=== PATIENT | male | born 2000 | race Two or more races ===

== ENCOUNTER 2020-06-17 02:30 | Emergency (ER) | payer OTHER ==
[2020-06-17 02:55] VITALS: BP 108/64; PULSE 79; TEMP 99.2
--- OUTSIDE RECORDS SUMMARY | 2020-06-17 02:57 | XMS ---
:2000 Author Organization [facility] Care Team Providers Name Role Phone Fabian Unavailable [phone] ED STAFF PHYSICIAN Unavailable Unavailable JOSEFINA DARIEN Unavailable Unavailable ED STAFF PHYSICIAN Unavailable Unavailable Josefina MD Unavailable Unavailable Josefina MD Unavailable Unavailable Re-disclosure Warning The records that you are about to access may contain information from federally- assisted alcohol or drug abuse programs. If such information is present, then the following federally mandated warning applies: This information has been disclosed to you from records protected by federal confidentiality rules (42 CFR part 2). The federal rules prohibit you from making any further disclosure of this information unless further disclosure is expressly permitted by the written consent of the person to whom it pertains or as otherwise permitted by 42 CFR part 2. A general authorization for the release of medical or other information is NOT sufficient for this purpose. The Federal rules restrict any use of the information to criminally investigate or prosecute any alcohol or drug abuse patient.The records that you are about to access may contain highly sensitive health information, the redisclosure of which is protected by Article 27-F of the [facility] Public Health law. If you continue you may haveaccess to information: Regarding HIV / AIDS; Provided by facilities licensed or operated by the [facility] Office of Mental Health; or Provided by the [facility] Office for People With Developmental Disabilities. If such information is present, then the following [facility] mandated warning applies: This information has been disclosed to you from confidential records which are protected by state law. State law prohibits you from making any further disclosure of this information without the specific written consent of the person to whom it pertains, or as otherwise permitted by law. Any unauthorized further disclosure in violation of state law may result in a fine or retirement sentence or both. A general authorization for the release of medical or other information is NOT sufficient authorization for further disclosure. Encounters Encounter Providers Location Date Indications Data Source(s ) Emergency Attender: ED STAFF H 01/01/2020 [facility] PHYSICIANAttender: 06:11:00 PM EDT M [facility]ical Center STAFF ED STAFF - 01/01/2020 PHYSICIANAdmitter: 07:55:00 PM EDT ED STAFF PHYSICIAN Patient discharged. Outpatient Attender: DARIEN ROCHA H 10/24/2019 [facility] ARNABAdmitter: DARIEN 12:00:00 PM [facility] JOSEFINA DARIEN Attender: Darien Josefina Positive 10/24/2019 NEX TGEN ([facility] Directions 12:00:00 PM [facility] 10/24/2019 [facility] 12:00:00 PM EST Center) Attender: Ryan Bose Positive 10/24/2019 NEXT GEN ([facility] Directions 10:36:00 AM [facility] 10/24/2019 [facility] 10:36:00 AM EST [place]) Insurance Providers Payer name Policy type Policy ID Covered Covered green party's Policy P juan josé / Coverage green party ID relationship to Liu Inf ormation type liu [facility] [id number] MEDICAID COMM PLAN [employer] [id number] 01 [id number] [place] W [id number] [employer] W [id number] [place] Problems, Conditions, and Diagnoses Code Display Name Description Problem Type Effective Data Sour ce(s) Dates N34.2 Other urethritis OTHER URETHRITIS Diagnosis 01/01/2020 [facility] 06:11:00 PM Medical [facility] EDT 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 [place] infection of penis INFECTION OF PENIS 06:11:00 PM Medical Center EDT Z11.3 Encounter for ENCNTR SCREEN FOR Diagnosis 01/01/2020 [facility]avia [facility] screening for INFECTIONS W SEXL 06:11:00 PM [facility] ical Center infections with a MODE OF TRANSMISS EDT predominantly sexual mode of transmission F10.10 Alcohol abuse, ALCOHOL ABUSE, Diagnosis 10/24/2019 [facility] uncomplicated UNCOMPLICATED 12:00:00 PM Medical Center EST F12.10 Cannabis abuse, CANNABIS ABUSE, Diagnosis 10/24/2019 [facility] uncomplicated UNCOMPLICATED 12:00:00 PM Medical Center EST F12.20 Cannabis CANNABIS Diagnosis 10/24/2019 [facility] dependence, DEPENDENCE, 12:00:[address] uncomplicated UNCOMPLICATED EST Results ID Date Data Source [id number] 01/01/2020 06:20:00 PM EDT [facility] 0 Name Value Range Interpretation Description Data Sup porting Code Source(s) Document(s ) Color of Urine YELLOW <content [facility] styleCode="Becka Sujata d">Color, Medical Urine Center </content>AMBE R <content styleCode="Lyndsey lics"> (YELLOW )</content> Ketones NEGATIVE <content [facility] [Mass/volume] styleCode="[facility] in Urine by d">Urine Medical Test strip Ketone Center </content>NEGA TIVE MG/DL<content styleCode="Lyndsey lics"> (NEGATIVE MG/DL)</conten t> UNK NEGATIVE <content [facility] styleCode="Becka Sujata d">Urine Medical Bilirubin Center </content>SMAL L <content styleCode="Lyndsey lics"> (NEGATIVE )</content> Specific 1.015-1.02 <content [facility] gravity of 5 styleCode="[facility] Urine by Test d">Urine Medical strip Specific Center [place] </content>1.02 0 <content styleCode="Lyndsey lics"> (1.015-1.025 )</content> Glucose NEGATIVE <content Saint [Mass/volume] styleCode="Becka Sujata in Urine by d">Urine Medical Test strip Glucose Center </content>NEGA TIVE MG/DL<content styleCode="Lyndsey lics"> (NEGATIVE MG/DL)</conten t> UNK CLEAR <content [facility] styleCode="Becka Sujata d">Urine Medical Clarity Center </content>HAZY <content styleCode="Lyndsey lics"> (CLEAR )</content> Urobilinogen 0.2-1.0 <content [facility] [Units/volume] styleCode="[facility] in Urine by d">Urine Medical Test strip Urobilinogen Center </content>1.0 MG/DL<content styleCode="Lyndsey lics"> (0.2-1.0 MG/DL)</conten t> Protein NEGATIVE <content [facility] [Mass/volume] styleCode="Becka [facility] in Urine by d">Urine Medical Test strip Protein Center </content>TRAC E MG/DL<content styleCode="Lyndsey lics"> (NEGATIVE MG/DL)</conten t> Nitrite NEGATIVE <content [facility] [Presence] in styleCode="Becka Ernst Urine by Test d">Urine Medical strip Nitrite Center </content>NEGA TIVE <content styleCode="Lyndsey lics"> (NEGATIVE )</content> pH of Urine by 4.5-8.0 <content [facility] Test strip styleCode="[facility] d">Urine pH Medical </content>7.0 Center <content styleCode="Lyndsey lics"> (4.5-8.0 )</content> Hemoglobin NEGATIVE <content [facility] [Presence] in styleCode="Becka Ernst Urine by Test d">Urine Blood Medical strip </content>NEGA Center TIVE <content styleCode="Lyndsey lics"> (NEGATIVE )</content> UNK NEGATIVE <content [facility] styleCode="[facility] d">Urine Medical Bacteria Center </content>MODE RATE HPF<content styleCode="Lyndsey lics"> (NEGATIVE HPF)</content> Leukocyte NEGATIVE <content [facility] esterase styleCode="[facility]a [facility] [Presence] in d">Urine Medical Urine by Test Leukocyte Center strip </content>SMAL L <content styleCode="Lyndsey lics"> (NEGATIVE )</content> UNK 0-3 <content [facility] styleCode="[facility] d">Urine White Medical Blood Cell Center </content>50 - 100 HPF<content styleCode="Lyndsey lics"> (0-3 HPF)</content> UNK 0-3 <content [facility] styleCode="[facility] d">Urine Red Medical Blood Cell Center </content>0-3 HPF<content styleCode="Lyndsey lics"> (0-3 HPF)</content> UNK NONE SEEN <content [facility] styleCode="Becka Sujata d">Urine Mucus Medical </content>MODE Center RATE HPF<content styleCode="Lyndsey lics"> (NONE SEEN HPF)</content> UNK NONE SEEN <content Saint styleCode="Becka Sujata d">Epithelial Medical Cell Center </content>0-2 HPF<content styleCode="Lyndsey lics"> (NONE SEEN HPF)</content> Procedure Social History Code Duration Value Status Description Data Source(s ) Smoking 01/01/2020 Denies Ever completed Denies Ever Smoked [facility] 06:19:00 PM EDT Smoked Medical C enter Smoking 01/01/2020 Denies Ever completed Denies Ever Smoked [facility] 06:18:00 PM EDT Smoked Medical C enter Smoking 01/01/2020 Denies Ever completed Denies Ever Smoked [facility] 06:14:00 PM EDT Smoked Medical C enter Smoking Unknown if ever completed Unknown if ever [facility] smoked smoked Medical Center Vital Signs ID Date Data Source UNK Name Value Range Interpretation Code Description Data Source(s) Body weight 68.675234 kg 68.310290 kg [facility] Measured Medical Center Body temperature 36.445198 36.722780 Net[facility] Respiratory rate 18 /min 18 /min [facility] Oxygen saturation 99 % 99 % [facility] tasneme in Arterial blood Medical Center by Pulse oximetry Heart rate 69 /min 69 /min [facility] Body height 175.067229 175.157906 cm [facility] Diastolic blood 55 mm[Hg] 55 mm[Hg] [facility] pressure Medical Center Systolic blood 114 mm[Hg] 114 mm[Hg] [facility] pressure Medical Center Body mass index 22.1 kg/m2 22.1 kg/m2 [facility] (BMI) [Ratio] Medical [facility]
--- NOTE | 2020-06-17 04:09 | PDOC ---
Attending Attestation - Resident Resident Name: Paulo Horta - ED Attending Attestation I have performed the following: I have examined & evaluated the patient, The case was reviewed & discussed with the resident, I agree w/resident's findings & plan - HPI HPI: 06/17/20 04:14 Pt has pus coming out of penis. Had this a few months ago from another GF; now with a new girl. He states that he last slept with her 2 weeks ago and now he has 3 days of penile discharge and pain - Physicial Exam PE: 06/17/20 04:15 Normal exam pus at penis 06/17/20 05:43 Afebrile normal heart and lungs pt laughing and evasive of who he may have slept with claims he only slept with his GF GF is here and she will be treated too - Medical Decision Making 06/17/20 04:15 Pt will follow with STD clinic Pt treated with ceftriaxone IM and zithromax 1g and he received a VDRL test; we will follow up with a call back Discharge - Discharge Information Problems reviewed: Yes Clinical Impression/Diagnosis: Sexually transmissible disease Condition: Good Disposition: HOME - Follow up/Referral Referrals: Wesley Arambula MD [Staff Physician] - Ren Fermin MD [Staff Physician] - - Patient Discharge Instructions Patient Printed Discharge Instructions: Informing Partners of STI Patients Reduces Ongoing and Recurrent Sexually T, True or False: It Is Possible for a Person to Get a Sexually Transmitted In Additional Instructions: You came to the ED with a possible STI. We treated you, tested you, and counseled you. No news is good news. If you receive a call from the hospital, you must follow up. Please follow up with the doctor listed in this packet within 48hours of leaving the ED. Print Language: MALAYSIAN - Post Discharge Activity
[2020-06-17] MEDS ORDERED: AZITHROMYCIN 500 MG TABLET PO ONE (04:14)
--- NOTE | 2020-06-17 04:23 | PDOC ---
History of Present Illness - General Chief Complaint: Urinary Problem Stated Complaint: POSSIBLE UTI Time Seen by Provider: 06/17/20 03:40 - History of Present Illness Initial Comments: 06/17/20 06:37 20yo M w/ PMHx STI presents with pus from the urethral meatus, tender inguinal lymph nodes, and pain with urination x3days. Claims he is in a monogamous relationship with his GF, who is at bedside by his request. States he was dx and tx with STI months ago. Denies fever, pain in the testes, n/v/d. Requests STI testing and tx for GC. Past History - Medical History Allergies/Adverse Reactions: Allergies Allergy/AdvReac Type Severity Reaction Status Date / Time No Known Allergies Allergy Verified 06/17/20 05:08 Review of Systems - Review of Systems Able to Perform ROS?: Yes Is the patient limited [place] proficient: Yes Constitutional: No: Chills, Diaphoresis, Fever HEENTM: No: Blurred Vision, Recent change in vision, Throat Swelling Respiratory: No: Cough, Hemoptysis Cardiac (ROS): No: Chest Pain, Edema ABD/GI: No: Diarrhea, Nausea, Vomiting : Yes: See HPI, Burning, Dysuria, Discharge, Pain. No: Frequency, Hematuria, Incontinence, Testicular Swelling, Lesions, Testicular Pain Musculoskeletal: No: Back Pain, Joint Pain, Joint Swelling Integumentary: No: Bruising, Dryness, Pruritus, Rash Neurological: No: Symptoms reported Endocrine: No: Symptoms Reported Hematologic/Lymphatic: No: Symptoms Reported All Other Systems: Reviewed and Negative *Physical Exam - Vital Signs Last Vital Signs Temp Pulse Resp BP Pulse Ox 99.2 F 79 18 108/64 98 06/17/20 02:50 06/17/20 02:50 06/17/20 02:50 06/17/20 02:50 06/17/20 02:50 - Physical Exam General Appearance: Yes: Nourished, Appropriately Dressed. No: Apparent Distress HEENT: positive: EOMI, Normal Voice Neck: positive: Trachea midline, Supple Respiratory/Chest: positive: Lungs Clear, Normal Breath Sounds. negative: Chest Tender Cardiovascular: positive: Regular Rhythm, Regular Rate Gastrointestinal/Abdominal: positive: Normal Bowel Sounds, Soft Male Genitalia: positive: discharge (pus). negative: normal genitalia (pus at the urethral meatus ), testicular tenderness, CVAT Lymphatic: positive: Adenopathy (inguinal, bilateral) Musculoskeletal: positive: Normal Inspection. negative: CVA Tenderness Extremity: positive: Normal Capillary Refill, Normal Inspection Integumentary: positive: Normal Color, Dry, Warm Neurologic: positive: Fully Oriented, Alert, Normal Mood/Affect Medical Decision Making - Medical Decision Making 06/17/20 06:51 counseled, tested, and treated for GC Discharge - Discharge Information Problems reviewed: Yes Clinical Impression/Diagnosis: Sexually transmissible disease Condition: Good Disposition: HOME - Admission No - Follow up/Referral Referrals: Wesley Arambula MD [Staff Physician] - Ren Fermin MD [Staff Physician] - - Patient Discharge Instructions Patient Printed Discharge Instructions: Informing Partners of STI Patients Reduces Ongoing and Recurrent Sexually T, True or False: It Is Possible for a Person to Get a Sexually Transmitted In Additional Instructions: You came to the ED with a possible STI. We treated you, tested you, and counseled you. No news is good news. If you receive a call from the hospital, you must follow up. Please follow up with the doctor listed in this packet within 48hours of leaving the ED. Print Language: CITIZEN OF [place] - Post Discharge Activity
[2020-06-17] MEDS ORDERED: LIDOCAINE HCL 1%, 10 MG/ML (20ML VIAL) ONE (04:31)
[2020-06-17] MEDS ORDERED: cefTRIAXone SODIUM 1 GM VIAL ONE (04:31)
[2020-06-17 04:55] LABS: EPI CELLS 0 /uL (0-25.1); HYALINE CASTS 0 /uL (0-3.1); PH,URINE 7.5 (5.0-8.0); URINE APPEARANCE TURBID; URINE BACTERIA 95 /uL (0-1359); URINE BILIRUBIN NEGATIVE (NEGATIVE); URINE COLOR YELLOW; URINE GLUCOSE (UA) NEGATIVE (NEGATIVE); URINE KETONE NEGATIVE (NEGATIVE); URINE LEUK ESTERASE 3+ (NEGATIVE); URINE NITRITE NEGATIVE (NEGATIVE); URINE PROTEIN 1+ (NEGATIVE); URINE RBC 98 /uL (0-23.9); URINE WBC 4400 /uL (0-25.8)
== END 2020-06-17 05:51 | disposition home or self-care (01) ==
LOC: JER 02:30
DX: A64 Unspecified sexually transmitted disease (principal); Z20.2 Contact with and (suspected) exposure to infections with a predominantly sexual mode of transmission
CPT/HCPCS: 36415; 81003; 86593; 86780; 87086; 87389; 99284-25

== ENCOUNTER 2022-05-25 18:33 | Emergency (ER) | payer OTHER ==
[2022-05-25 19:14] VITALS: BP 117/76; PULSE 64; RESP 18; TEMP 97.8; BMI 22.8
[2022-05-25 22:46] LABS: HIV INTERPRETATION NEGATIVE (NEGATIVE)
[2022-05-25 22:47] LABS: SYPHILIS W/ RPR CONF REACTIVE (NONREACTIVE)
== END 2022-05-25 23:38 | disposition left against medical advice (07) ==
LOC: JERFT 18:33
DX: Z20.2 Contact with and (suspected) exposure to infections with a predominantly sexual mode of transmission (principal)
CPT/HCPCS: 36415; 86593; 86780; 87389; 87491; 87591; 99283-25

== ENCOUNTER 2022-05-26 13:09 | Emergency (ER) | payer OTHER ==
[2022-05-26 13:19] VITALS: BP 124/65; PULSE 64; RESP 18; TEMP 98.9; BMI 22.8
[2022-05-26] MEDS ORDERED: PENICILLIN G BENZATHINE 2,400,000 UNIT/4 ML PFS IM ONE (14:11)
[2022-05-26] MEDS ORDERED: PENICILLIN G BENZATHINE 1,200,000 UNIT/2 ML PFS IM ONE (14:13)
== END 2022-05-26 14:25 | disposition home or self-care (01) ==
LOC: JERFT 13:09
DX: A53.9 Syphilis, unspecified (principal)
CPT/HCPCS: 36415; 87491; 87591; 99284-25